=== PATIENT | female | born 1935 | race Caucasian/White ===

== ENCOUNTER 2018-01-31 22:26 | Inpatient (IN) | payer MEDICARE, MEDICAID ==
[~2018-01-31] VITALS: Ht 152.4 cm; Wt 48.1 kg
[2018-01-31] MEDS ORDERED: IPRATROPIUM BROMIDE (0.02%) 0.5MG/2.5ML NEB HHN STA (22:38)
[2018-01-31] MEDS ORDERED: SODIUM CHLORIDE 0.9% 1,000 ML IV ONE (22:38)
[2018-01-31] MEDS ORDERED: ALBUTEROL (0.083%) 2.5MG/3ML NEB HHN STA (22:38)
[2018-01-31] MEDS ORDERED: BUDE0.25 NEB (22:42)
[2018-01-31] MEDS ORDERED: PANT40TA4 MT (22:42)
[2018-01-31] MEDS ORDERED: HYDR-4009 MT (22:42)
[2018-01-31] MEDS ORDERED: SENN15TA4 PO (22:42)
[2018-01-31] MEDS ORDERED: PRED10TA MT (22:42)
[2018-01-31] MEDS ORDERED: DIAZ10TA4 PO (22:42)
[2018-01-31] MEDS ORDERED: FLUT1DIS3 INH (22:42)
[2018-01-31] MEDS ORDERED: ASPIRIN 81MG TABLET PO ONE (22:45)
[2018-01-31 23:11] LABS: BASOPHILS % 0.2 % (0.0-2.0); HEMATOCRIT. 29.6 % (36.0-48.0); HEMOGLOBIN. 9.7 g/dL (12.0-16.0); LYMPHOCYTES % 9.3 % (20.0-50.0); MEAN CORPUSCULAR HEMOGLOBIN 33.7 pg (28.0-32.0); MEAN CORPUSCULAR VOLUME 102.6 fL (81.0-99.0); NEUTROPHILS % 85.5 % (40.0-76.0); RED BLOOD CELL COUNT 2.88 mill/uL (4.2-5.4); RED CELL DISTRIBUTION WIDTH 16.2 % (11.6-14.6)
[2018-01-31] MEDS: METOPROLOL TARTRATE 5MG/5ML VIAL IV SCH ×2 (23:12→23:35)
[2018-01-31 23:17] LABS: CHLORIDE 107 mEq/L (98-107)
[2018-01-31 23:25] LABS: MEAN PLATELET VOLUME 9.7 fl (7.4-10.4); PLATELET 117 x1000/uL (130-400)
[2018-01-31 23:26] LABS: PARTIAL THROMBOPLASTIN TIME 26.8 sec (23.4-31.0); PROTHROMBIN TIME 10.5 sec (9.1-11.1)
[2018-02-01 03:00] VITALS: BP 122/67
[2018-02-01 04:00] VITALS: BP 110/62
[2018-02-01] MEDS ORDERED: IPRATROPIUM/ALBUTEROL 0.5-3(2.5)MG/3ML NEB HHN PRN (05:00)
[2018-02-01] MEDS ORDERED: DILTIAZEM HCL 5MG/ML 5ML VIAL IV ONE (07:45)
[2018-02-01 08:00] VITALS: BP 125/60
[2018-02-01] MEDS ORDERED: DIGOXIN 500MCG/2ML AMP IV SCH (08:00)
[2018-02-01] MEDS: PANTOPRAZOLE 40MG DR TABLET PO SCH (08:05)
[2018-02-01] MEDS ORDERED: PREDNISONE 1MG TABLET PO SCH (09:00)
[2018-02-01] MEDS ORDERED: MEDICATION NOT ON FORMULARY EA (Prednisone 1 TAB) MT SCH (09:00)
[2018-02-01] MEDS ORDERED: METOPROLOL TARTRATE 50MG TABLET PO SCH (09:00)
[2018-02-01] MEDS ORDERED: NON FORMULARY PATIENT HOME MED EA XX SCH (09:00)
[2018-02-01] MEDS: SENNOSIDES 8.6MG TABLET PO SCH (09:13)
[2018-02-01] MEDS: PREDNISONE 10MG TABLET PO SCH (09:13)
[2018-02-01] MEDS ORDERED: CEFEPIME 1,000 MG in DEXTROSE 5% WATER 50 ML IV SCH (10:00)
[2018-02-01] MEDS: METRONIDAZOLE 500 MG PREMIX 100 ML IV SCH ×2 (11:00→17:38)
[2018-02-01 12:00] VITALS: BP 134/72
[2018-02-01 12:33] LABS: BASOPHILS % 0.1 % (0.0-2.0); HEMATOCRIT. 27.1 % (36.0-48.0); HEMOGLOBIN. 8.9 g/dL (12.0-16.0); LYMPHOCYTES % 7.8 % (20.0-50.0); MEAN CORPUSCULAR HEMOGLOBIN 33.8 pg (28.0-32.0); MEAN CORPUSCULAR VOLUME 103.3 fL (81.0-99.0); MONOCYTES % 6.4 % (2.0-8.0); NEUTROPHILS % 85.7 % (40.0-76.0); RED BLOOD CELL COUNT 2.62 mill/uL (4.2-5.4); RED CELL DISTRIBUTION WIDTH 16.3 % (11.6-14.6)
[2018-02-01 13:10] LABS: PLATELET 104 x1000/uL (130-400)
[2018-02-01 13:36] LABS: CHLORIDE 110 mEq/L (98-107)
[2018-02-01 13:45] LABS: HDL CHOLESTEROL 73 mg/dL (40-59)
[2018-02-01 13:46] LABS: T4 FREE 1.51 ng/dL (0.76-1.46)
[2018-02-01 14:33] LABS: LDL CHOLESTEROL 30 mg/dL (5-100)
[2018-02-01 16:00] VITALS: BP 137/65
[2018-02-01] MEDS ORDERED: IPRATROPIUM BROMIDE (0.02%) 0.5MG/2.5ML NEB HHN SCH (16:30)
[2018-02-01] MEDS ORDERED: GUAIFENESIN 200MG/10ML SUGAR FREE UDC PO PRN (16:30)
[2018-02-01 18:15] LABS: CLARITY URINE CLOUDY (CLEAR); COLOR URINE YELLOW (YELLOW); KETONES URINE NEGATIVE (NEGATIVE); LEUKOCYTE ESTERASE URINE 3+ (NEGATIVE); NITRITE URINE POSITIVE (NEGATIVE); OCCULT BLOOD URINE 2+ (NEGATIVE); PH URINE 6.5 (4.5-8.0); PROTEIN URINE TRACE (NEGATIVE); SPECIFIC GRAVITY URINE 1.015 (1.005-1.030); UROBILINOGEN URINE 0.2 E.U./dL (0.2-1.0)
[2018-02-01 18:34] LABS: TOTAL IRON BINDING CAPACITY 169 ug/dL (250-450)
[2018-02-01 20:00] VITALS: BP 2/44
[2018-02-01] MEDS: DILTIAZEM HCL 125 MG in DEXT 5% WATER 100 ML IV PRN (21:11)
[2018-02-01] MEDS: BUDESONIDE 0.5MG/2ML NEB HHN SCH ×2 (21:46→21:49)
[2018-02-01] MEDS: IPRATROPIUM/ALBUTEROL 0.5-3(2.5)MG/3ML NEB HHN SCH ×2 (21:46→21:49)
[2018-02-02] VITALS (8 sets, daily range): BP systolic 113–137; BP diastolic 46–84
[2018-02-02 00:27] LABS: CREATINE KINASE 11 IU/L (26-192)
[2018-02-02 00:28] LABS: CREATINE KINASE MB FRACTION < 1.0 ng/mL (0.5-3.6)
[2018-02-02] MEDS: IPRATROPIUM/ALBUTEROL 0.5-3(2.5)MG/3ML NEB HHN SCH ×4 (01:00→20:35)
[2018-02-02] MEDS: METRONIDAZOLE 500 MG PREMIX 100 ML IV SCH ×3 (01:26→18:19)
[2018-02-02 06:46] LABS: BASOPHILS % 0.1 % (0.0-2.0); EOSINOPHILS % 0.2 % (0.0-5.0); HEMATOCRIT. 30.5 % (36.0-48.0); LYMPHOCYTES % 14.8 % (20.0-50.0); MEAN CORPUSCULAR HEMOGLOBIN 33.3 pg (28.0-32.0); MEAN CORPUSCULAR VOLUME 101.8 fL (81.0-99.0); MEAN PLATELET VOLUME 10.3 fl (7.4-10.4); NEUTROPHILS % 75.9 % (40.0-76.0); PLATELET 113 x1000/uL (130-400); RED BLOOD CELL COUNT 2.99 mill/uL (4.2-5.4); RED CELL DISTRIBUTION WIDTH 16.1 % (11.6-14.6)
[2018-02-02 07:48] LABS: CHLORIDE 110 mEq/L (98-107)
[2018-02-02 07:56] LABS: CREATINE KINASE 12 IU/L (26-192)
[2018-02-02 07:58] LABS: CREATINE KINASE MB FRACTION < 1.0 ng/mL (0.5-3.6)
[2018-02-02 08:17] LABS: VITAMIN B12 SERUM 855 pg/mL (211-911)
[2018-02-02] MEDS: SENNOSIDES 8.6MG TABLET PO SCH (08:37)
[2018-02-02] MEDS: PANTOPRAZOLE 40MG DR TABLET PO SCH (08:37)
[2018-02-02] MEDS: PREDNISONE 10MG TABLET PO SCH (08:37)
[2018-02-02] MEDS: BUDESONIDE 0.5MG/2ML NEB HHN SCH ×2 (08:50→21:10)
[2018-02-02] MEDS ORDERED: POTASSIUM CHLORIDE 20MEQ TABLET SR PO NR (09:15)
[2018-02-02] MEDS ORDERED: CEFEPIME 500 MG in DEXTROSE 5% WATER 50 ML IV SCH (10:00)
[2018-02-02] MEDS ORDERED: LIDOCAINE HCL/EPINEPHRINE 1%-EPI 1:100,000 20 ML VIAL INFIL NR (11:15)
[2018-02-02] MEDS ORDERED: DILTIAZEM HCL 120MG CAPSULE CD 24HR PO SCH (11:45)
[2018-02-02] MEDS ORDERED: DILTIAZEM HCL 120MG TABLET PO SCH (12:00)
[2018-02-02] MEDS: IRON SUCROSE COMPLEX 100 MG/5 ML ML IV SCH (13:10)
[2018-02-02] MEDS ORDERED: GUAIFENESIN 200MG/10ML SUGAR FREE UDC PO PRN (14:00)
[2018-02-02] MEDS ORDERED: CEFEPIME 1,000 MG in DEXTROSE 5% WATER 50 ML IV SCH (14:37)
[2018-02-02] MEDS ORDERED: IOHEXOL-350 100 ML BOTTLE ONE (17:51)
[2018-02-03] MEDS: METRONIDAZOLE 500 MG PREMIX 100 ML IV SCH ×3 (00:23→18:15)
[2018-02-03] MEDS: LORAZEPAM 1MG TABLET PO PRN ×2 (01:23→08:28)
[2018-02-03] MEDS: CEFEPIME 1,000 MG in DEXTROSE 5% WATER 50 ML IV SCH (04:18)
[2018-02-03] MEDS: IPRATROPIUM/ALBUTEROL 0.5-3(2.5)MG/3ML NEB HHN SCH ×4 (05:10→21:57)
[2018-02-03] MEDS: DILTIAZEM HCL 125 MG in DEXT 5% WATER 100 ML IV PRN (05:15)
[2018-02-03 08:00] VITALS: BP 118/70
[2018-02-03] MEDS: FAMOTIDINE 20MG TABLET PO SCH (08:28)
[2018-02-03] MEDS: DILTIAZEM HCL 60MG TABLET GT SCH (08:28)
[2018-02-03] MEDS: PREDNISONE 10MG TABLET PO SCH (08:29)
[2018-02-03] MEDS: SENNOSIDES 8.6MG TABLET PO SCH (08:29)
[2018-02-03] MEDS: IRON SUCROSE COMPLEX 100 MG/5 ML ML IV SCH (09:06)
[2018-02-03] MEDS: BUDESONIDE 0.5MG/2ML NEB HHN SCH (09:17)
[2018-02-03 12:00] VITALS: BP 101/54
[2018-02-03 15:51] LABS: BASOPHILS % 0.2 % (0.0-2.0); HEMATOCRIT. 27.9 % (36.0-48.0); HEMOGLOBIN. 9.1 g/dL (12.0-16.0); LYMPHOCYTES % 6.5 % (20.0-50.0); MEAN CORPUSCULAR HEMOGLOBIN 33.2 pg (28.0-32.0); MEAN CORPUSCULAR VOLUME 101.4 fL (81.0-99.0); MEAN PLATELET VOLUME 11.8 fl (7.4-10.4); MONOCYTES % 5.8 % (2.0-8.0); NEUTROPHILS % 87.5 % (40.0-76.0); PLATELET 142 x1000/uL (130-400); RED BLOOD CELL COUNT 2.75 mill/uL (4.2-5.4); RED CELL DISTRIBUTION WIDTH 15.7 % (11.6-14.6)
[2018-02-03 16:00] VITALS: BP 125/60
[2018-02-03 16:04] LABS: CHLORIDE 111 mEq/L (98-107)
[2018-02-03 18:00] VITALS: BP 125/60
[2018-02-03 20:00] VITALS: BP 122/59
[2018-02-04] VITALS: BP 116/59
[2018-02-04] MEDS: LORAZEPAM 1MG TABLET PO PRN (00:57)
[2018-02-04] MEDS: METRONIDAZOLE 500 MG PREMIX 100 ML IV SCH ×3 (00:57→17:31)
[2018-02-04] MEDS: IPRATROPIUM/ALBUTEROL 0.5-3(2.5)MG/3ML NEB HHN SCH ×4 (02:41→20:47)
[2018-02-04 04:00] VITALS: BP 87/36
[2018-02-04] MEDS: CEFEPIME 1,000 MG in DEXTROSE 5% WATER 50 ML IV SCH (05:03)
[2018-02-04] MEDS ORDERED: SENN15TA4 PO (07:41)
[2018-02-04 07:44] LABS: BASOPHILS % 0.3 % (0.0-2.0); EOSINOPHILS % 0.2 % (0.0-5.0); HEMATOCRIT. 25.9 % (36.0-48.0); HEMOGLOBIN. 8.5 g/dL (12.0-16.0); LYMPHOCYTES % 15.5 % (20.0-50.0); MEAN CORPUSCULAR HEMOGLOBIN 33.9 pg (28.0-32.0); MEAN CORPUSCULAR VOLUME 103.5 fL (81.0-99.0); MONOCYTES % 8.2 % (2.0-8.0); NEUTROPHILS % 75.8 % (40.0-76.0); RED BLOOD CELL COUNT 2.51 mill/uL (4.2-5.4); RED CELL DISTRIBUTION WIDTH 16.4 % (11.6-14.6)
[2018-02-04 08:00] VITALS: BP 118/55
[2018-02-04 08:30] LABS: CHLORIDE 112 mEq/L (98-107)
[2018-02-04 08:57] LABS: MEAN PLATELET VOLUME 10.1 fl (7.4-10.4); PLATELET 107 x1000/uL (130-400)
[2018-02-04] MEDS: BUDESONIDE 0.5MG/2ML NEB HHN SCH (09:26)
[2018-02-04] MEDS: FAMOTIDINE 20MG TABLET PO SCH (09:34)
[2018-02-04] MEDS: IRON SUCROSE COMPLEX 100 MG/5 ML ML IV SCH (09:34)
[2018-02-04] MEDS: SENNOSIDES 8.6MG TABLET PO SCH (09:34)
[2018-02-04] MEDS: PREDNISONE 10MG TABLET PO SCH (09:36)
[2018-02-04] MEDS: DILTIAZEM HCL 60MG TABLET GT SCH (09:36)
[2018-02-04 12:00] VITALS: BP 111/50
[2018-02-04] MEDS ORDERED: POTASSIUM CHLORIDE 20MEQ/PACKET PO SCH (13:45)
[2018-02-04 16:00] VITALS: BP 97/43
[2018-02-04 20:00] VITALS: BP 108/62
[2018-02-05] VITALS: BP 129/57
[2018-02-05] MEDS: METRONIDAZOLE 500 MG PREMIX 100 ML IV SCH ×3 (01:05→16:58)
[2018-02-05] MEDS: IPRATROPIUM/ALBUTEROL 0.5-3(2.5)MG/3ML NEB HHN SCH ×2 (01:19→07:56)
[2018-02-05 04:00] VITALS: BP 126/69
[2018-02-05] MEDS: CEFEPIME 1,000 MG in DEXTROSE 5% WATER 50 ML IV SCH (05:18)
[2018-02-05 06:34] LABS: BASOPHILS % 0.1 % (0.0-2.0); EOSINOPHILS % 0.3 % (0.0-5.0); HEMATOCRIT. 25.8 % (36.0-48.0); HEMOGLOBIN. 8.4 g/dL (12.0-16.0); LYMPHOCYTES % 19.7 % (20.0-50.0); MEAN CORPUSCULAR HEMOGLOBIN 33.4 pg (28.0-32.0); MEAN CORPUSCULAR VOLUME 102.2 fL (81.0-99.0); MONOCYTES % 8.6 % (2.0-8.0); NEUTROPHILS % 71.3 % (40.0-76.0); RED BLOOD CELL COUNT 2.53 mill/uL (4.2-5.4); RED CELL DISTRIBUTION WIDTH 16.1 % (11.6-14.6)
[2018-02-05 06:36] LABS: CHLORIDE 108 mEq/L (98-107)
[2018-02-05 07:48] LABS: MEAN PLATELET VOLUME 9.6 fl (7.4-10.4); PLATELET 117 x1000/uL (130-400)
[2018-02-05 08:00] VITALS: BP 130/54
[2018-02-05] MEDS: FAMOTIDINE 20MG TABLET PO SCH (08:47)
[2018-02-05] MEDS: PREDNISONE 10MG TABLET PO SCH (08:47)
[2018-02-05] MEDS: DILTIAZEM HCL 60MG TABLET GT SCH (08:48)
[2018-02-05] MEDS: SENNOSIDES 8.6MG TABLET PO SCH (08:49)
[2018-02-05 09:57] LABS: BG BASE EXCESS 5.6 mmol/L (-2.0-2.0); BG CARBOXYHEMOGLOBIN 0.2 % (0.5-1.5); BG DEOXYHEMOGLOBIN 9.3 % (0.0-5.0); BG FRACTION INSPIRED OXYGEN 28; BG HCO3 ACT 28.4 mmol/L (22.0-26.0); BG METHEMOGLOBIN 1.8 % (0.0-1.5); BG OXYGEN SATURATION 90.5 % (92.0-98.5); BG OXYHEMOGLOBIN 88.7 % (94.0-97.0); BG PCO2 34.2 mmHg (35.0-45.0); BG PH 7.537 (7.350-7.450); BG PO2 56.1 mmHg (75.0-100.0); BG SAMPLE SITE RIGHT RADIAL; BG TOTAL HEMOGLOBIN 9.4 g/dL (12.0-18.0); BG VENT MODE NASAL CANNULA
[2018-02-05] MEDS ORDERED: METOPROLOL TARTRATE 25MG TABLET GT SCH (10:00)
[2018-02-05 11:54] VITALS: BP 113/57
[2018-02-05] MEDS ORDERED: GUAIFENESIN 600MG ER TABLET PO SCH (12:00)
[2018-02-05 16:00] VITALS: BP 126/61
[2018-02-05 18:09] VITALS: BP 121/51
== END 2018-02-05 20:38 | disposition home health service (06) | DRG 853 ==
LOC: ER 22:26 → 5EST 23:46 → EDBEDREQ 23:48 → EDBEDREQSVC 23:48 → ENRESERV 02-01 02:13 → 5EST 02-01 04:22
PROVIDERS: ADMIT Internal Medicine; ATTEND Internal Medicine
PROC: 0JB70ZZ Excision of Back Subcutaneous Tissue and Fascia, Open Approach (ICD-10-PCS; principal; 2018-02-03)
DX: A41.9 Sepsis, unspecified organism (principal); L89.153 Pressure ulcer of sacral region, stage 3; G93.41 Metabolic encephalopathy; J69.0 Pneumonitis due to inhalation of food and vomit; E43 Unspecified severe protein-calorie malnutrition; J96.20 Acute and chronic respiratory failure, unspecified whether with hypoxia or hypercapnia; N39.0 Urinary tract infection, site not specified; J43.9 Emphysema, unspecified; E87.8 Other disorders of electrolyte and fluid balance, not elsewhere classified; D64.9 Anemia, unspecified; D69.6 Thrombocytopenia, unspecified; I48.91 Unspecified atrial fibrillation; R13.10 Dysphagia, unspecified; R62.7 Adult failure to thrive; Z79.51 Long term (current) use of inhaled steroids; Z87.891 Personal history of nicotine dependence; Z93.1 Gastrostomy status; Z99.81 Dependence on supplemental oxygen; Z79.1 Long term (current) use of non-steroidal anti-inflammatories (NSAID); Z79.899 Other long term (current) drug therapy
CPT/HCPCS: 36415; 36600; 70551; 71045; 71275; 80048; 80061; 82140; 82270; 82375; 82550; 82553; 82607; 82728; 82805; 83036; 83540; 83550; 83880; 84134; 84439; 84443; 84484; 85379; 92610; 93005; 93306; 93970; 94640; 96374; 97162; 97166; 97530; 99291; J0692; J1160; J3490; J7030; J7050; J7060; J7512; J7611; J7620; J7626; Q9967